=== PATIENT | male | born 1995 | race Caucasian/White ===

== ENCOUNTER 2016-11-15 17:32 | Emergency (ER) | payer OTHER ==
[~2016-11-15] VITALS: Ht 167.6 cm; Wt 74.8 kg
[2016-11-15] MEDS ORDERED: ASPI1TAB PO (17:43)
[2016-11-15] MEDS ORDERED: CONC54TA4 PO (17:43)
[2016-11-15] MEDS ORDERED: NS 1,000 ML IV ONE (18:15)
[2016-11-15] MEDS ORDERED: METOCLOPRAMIDE INJ 10MG/2ML VIAL (J2765) IV ONE (18:15)
--- NOTE | 2016-11-15 18:33 | REP ---
Head CT without contrast: History: Syncope. Comparison study: September 13, 2016. CT findings: Bone window settings demonstrate an intact bony calvarium. There is no evidence of skull fracture or incidental bony calvarial lesion. The visualized paranasal sinuses appear clear. No intraorbital abnormality is seen. On soft tissue window setting images; the lateral, third, and fourth ventricles are normal in size and position. Zarate-white differentiation pattern is normal above and below the tentorium. There are is no evidence of intracranial hemorrhage. No mass, edema, infarction, or midline shift is seen. No extra-axial fluid collection is appreciated. Impression: Negative noncontrast head CT. Signed by Shahid Adkins MD 11/15/2016 06:24 P
[2016-11-15 18:34] LABS: BASO % 0.2 % (0.0-1.0); EOS # 0.1 K/mm3 (0.0-0.50); EOS % 1.6 % (0.0-3.0); LARGE UNSTAINED CELL # 0.1 K/mm3 (0.0-0.4); LARGE UNSTAINED CELL % 1.6 % (0.0-4.0); LYMPH # 1.8 K/mm3 (1.5-6.5); LYMPH % 20.6 % (24.0-44.0); MEAN CORPUSCULAR HEMOGLOBIN 33.2 pg (27.0-33.0); MEAN CORPUSCULAR HGB CONC 36.1 g/dl (32.0-36.5); MEAN CORPUSCULAR VOLUME 92.1 fl (80.0-96.0); MONO # 0.4 K/mm3 (0.0-0.8); MONO % 5.4 % (0.0-5.0); NEUTROPHILS # 5.7 K/mm3 (1.8-7.7); NEUTROPHILS % 70.7 % (36.0-66.0); PLATELET COUNT, AUTOMATED 194 k/mm3 (150-450); RED CELL DISTRIBUTION WIDTH 12.1 % (11.5-14.5); WHITE BLOOD COUNT 8.1 K/mm3 (4.0-10.0)
--- NOTE | 2016-11-15 18:44 | REP ---
Chest x-ray: Sitting AP view. History: Syncope. Findings: The lungs are symmetrically aerated and clear. Heart is not enlarged. EKG monitoring electrodes overlie the chest. Pulmonary vasculature is not increased. Impression: No active disease. Signed by Shahid Adkins MD 11/15/2016 07:14 P
[2016-11-15 18:59] LABS: ANION GAP 7 MEQ/L (8-16); BLOOD UREA NITROGEN 14 MG/DL (7-18); CALCIUM LEVEL 8.6 MG/DL (8.5-10.1); CARBON DIOXIDE LEVEL 25 MEQ/L (21-32); CHLORIDE LEVEL 107 MEQ/L (98-107); CREATININE FOR GFR 0.88 MG/DL (0.70-1.30); GLOMERULAR FILTRATION RATE > 60.0 (>60); GLUCOSE, FASTING 87 MG/DL (70-105); POTASSIUM SERUM 3.7 MEQ/L (3.5-5.1); SODIUM LEVEL 139 MEQ/L (136-145)
[2016-11-15 20:29] VITALS: BP 110/60
--- NOTE | 2016-11-16 07:27 | ECGEPIP ---
Stationary ECG Study [facility] - ED Test Date: 2016-11-15 Pat Name: GEOVANNA RAMIREZ Department: Room: - Gender: M Salesperson [employer]: AntoineB: 1995 Requested By: BECKY Schuler Order Number: [id number] Reading MD: Todd Stein Measurements Intervals Stamps Rate: 58 P: 42 DC: 135 QRS: 76 QRSD: 105 T: 50 QT: 409 QTc: 404 Interpretive Statements SINUS BRADYCARDIA BENIGN EARLY REPOLARIZATION POSSIBLE PRIOR INFERIOR INFARCT NO PRIORS Electronically Signed On 11-16-2016 7:27:39 EDT by Todd Stein
== END 2016-11-15 20:40 | disposition home or self-care (01) ==
LOC: M ED 18:48
DX: R51 Headache (principal); R55 Syncope and collapse; F90.9 Attention-deficit hyperactivity disorder, unspecified type; Z79.899 Other long term (current) drug therapy; Z79.82 Long term (current) use of aspirin
CPT/HCPCS: 70450; 71010; 80048; 85025; 93005; 93041; 94760; 96374; 99285; J2765

== ENCOUNTER 2017-01-21 23:08 | Emergency (ER) | payer OTHER ==
[~2017-01-21] VITALS: Ht 170.2 cm; Wt 77.2 kg
[2017-01-21 23:08] VITALS: BP 135/81
[~2017-01-21 23:08] MED LIST: ASPI1TAB PO; CONC54TA4 PO
[2017-01-21] MEDS ORDERED: ADDE10CA3 PO (23:23)
== END 2017-01-21 23:47 | disposition home or self-care (01) ==
LOC: M ED 23:08
DX: S70.11XA Contusion of right thigh, initial encounter (principal); Y04.1XXA Assault by human bite, initial encounter; Y92.238 Other place in hospital as the place of occurrence of the external cause; Y93.89 Activity, other specified; Y99.1 Military activity